=== PATIENT | female | born 1940 | race African-American/Black ===

== ENCOUNTER 2018-01-03 17:26 | Inpatient (IN) | payer MEDICARE ==
[2018-01-03] MEDS: NICOTINE 21MG PATCH. TD (21:06)
[2018-01-03] MEDS: SEVELAMER CARBONATE 800 MG TABLET. PO (21:07)
[2018-01-03] MEDS: DOXYCYCLINE HYCLATE 100 MG TABLET PO (21:07)
[2018-01-03] MEDS: CALCIUM CARB/VIT D3 500/200 TABLET. PO (21:07)
[2018-01-03] MEDS: SODIUM BICARBONATE 650 MG TABLET. PO (21:07)
[2018-01-03] MEDS: SIMVASTATIN 20 MG TABLET PO (21:07)
[2018-01-03] MEDS: HEPARIN PF for SUB-Q USE 5,000 UNIT/0.5 ML VIAL. SQ (21:13)
[2018-01-03] MEDS: IPRATRPIUM/ALBUTEROL 0.5/2.5MG 3 ML NEBU. NEB (21:19)
[2018-01-04 07:09] LABS: ADD MAN DIFF? NO
[2018-01-04 07:35] LABS: ALBUMIN 2.7 g/dL (3.4-5.0); ALBUMIN/GLOBULIN RATIO 0.7 (1.0-1.7); ALK PHOS 62 U/L (46-116); ALT (SGPT) 8 U/L (14-59); ANION GAP 4 (6-14); AST (SGOT) 8 U/L (15-37); BLOOD UREA NITROGEN 39 mg/dL (7-20); BUN/CREATININE RATIO 5 (6-20); CALCIUM 11.4 mg/dL (8.5-10.1); CARBON DIOXIDE 36 mmol/L (21-32); CHLORIDE 105 mmol/L (98-107); CREATININE 8.2 mg/dL (0.6-1.0); GFR 5.7; GLUCOSE 94 mg/dL (70-99); POTASSIUM 3.6 mmol/L (3.5-5.1); SODIUM 145 mmol/L (136-145); TOTAL BILIRUBIN 0.4 mg/dL (0.2-1.0); TOTAL PROTEIN 6.5 g/dL (6.4-8.2)
[2018-01-04] MEDS: IPRATRPIUM/ALBUTEROL 0.5/2.5MG 3 ML NEBU. NEB ×4 (07:37→20:17)
[2018-01-04 08:22] LABS: BASO # 0.1 x10^3/uL (0.0-0.2); BASO % 1 % (0-3); EOS # 0.8 x10^3/uL (0.0-0.7); EOS % 8 % (0-3); HEMATOCRIT 26.8 % (36.0-47.0); HEMOGLOBIN 8.9 g/dL (12.0-15.5); LYMPH # 2.9 x10^3/uL (1.0-4.8); LYMPH % 28 % (24-48); MEAN CORPUSCULAR HEMOGLOBIN 28 pg (25-35); MEAN CORPUSCULAR HGB CONC 33 g/dL (31-37); MEAN CORPUSCULAR VOLUME 84 fL (79-100); MONO # 1.1 x10^3/uL (0.0-1.1); MONO % 10 % (0-9); NEUT # 5.4 x10^3uL (1.8-7.7); NEUT % 53 % (31-73); PLATELET COUNT 221 x10^3/uL (140-400); RED BLOOD COUNT 3.19 x10^6/uL (3.50-5.40); RED CELL DISTRIBUTION WIDTH 17.9 % (11.5-14.5); WHITE BLOOD COUNT 10.3 x10^3/uL (4.0-11.0)
[2018-01-04] MEDS: SEVELAMER CARBONATE 800 MG TABLET. PO ×3 (08:43→16:57)
[2018-01-04] MEDS: CALCIUM CARB/VIT D3 500/200 TABLET. PO (08:43)
[2018-01-04] MEDS: SODIUM BICARBONATE 650 MG TABLET. PO (08:43)
[2018-01-04] MEDS: DOXYCYCLINE HYCLATE 100 MG TABLET PO ×2 (08:43→21:19)
[2018-01-04] MEDS: LETROZOLE 2.5 MG TABLET. PO (08:44)
[2018-01-04] MEDS: HEPARIN PF for SUB-Q USE 5,000 UNIT/0.5 ML VIAL. SQ ×2 (08:45→21:26)
[2018-01-04] MEDS: NICOTINE 21MG PATCH. TD (08:46)
[2018-01-04] MEDS ORDERED: NON FORMULARY ITEM (Tiotropium Bromide (Spiriva) 1 CAP) IH (09:00)
[2018-01-04] MEDS ORDERED: AZITHROMYCIN 250 MG TABLET. PO (09:00)
[2018-01-04] MEDS ORDERED: MAGNESIUM SULFATE 2GM 50 ML IV (11:15)
[2018-01-04] MEDS: FOLIC/VIT B COMP W-C (RENAL) TABLET. PO ×2 (14:06→21:19)
[2018-01-04] MEDS: LACTOBACILLUS RHAMNOSUS GG 1 CAPSULE. PO ×2 (14:06→21:19)
[2018-01-04] MEDS: cefTRIAXone IV Push 1 GM VIAL. IVP (14:07)
[2018-01-04] MEDS: SIMVASTATIN 20 MG TABLET PO (21:19)
[2018-01-04] MEDS: DARBEPOETIN ALFA 60 MCG/0.3 ML DISP.SYRIN. SQ (21:20)
[2018-01-05 04:01] LABS: ADD MAN DIFF? NO
[2018-01-05 04:15] LABS: BASO # 0.1 x10^3/uL (0.0-0.2); BASO % 1 % (0-3); EOS # 0.4 x10^3/uL (0.0-0.7); EOS % 4 % (0-3); HEMATOCRIT 26.4 % (36.0-47.0); HEMOGLOBIN 8.8 g/dL (12.0-15.5); LYMPH # 2.6 x10^3/uL (1.0-4.8); LYMPH % 26 % (24-48); MEAN CORPUSCULAR HEMOGLOBIN 28 pg (25-35); MEAN CORPUSCULAR HGB CONC 33 g/dL (31-37); MEAN CORPUSCULAR VOLUME 83 fL (79-100); MONO # 1.1 x10^3/uL (0.0-1.1); MONO % 11 % (0-9); NEUT # 5.9 x10^3uL (1.8-7.7); NEUT % 59 % (31-73); PLATELET COUNT 205 x10^3/uL (140-400); RED BLOOD COUNT 3.17 x10^6/uL (3.50-5.40); RED CELL DISTRIBUTION WIDTH 17.3 % (11.5-14.5); WHITE BLOOD COUNT 10.1 x10^3/uL (4.0-11.0)
[2018-01-05 04:36] LABS: ALBUMIN 2.9 g/dL (3.4-5.0); ANION GAP 4 (6-14); CALCIUM 10.8 mg/dL (8.5-10.1); CARBON DIOXIDE 33 mmol/L (21-32); CHLORIDE 104 mmol/L (98-107); CREATININE 3.8 mg/dL (0.6-1.0); GFR 13.9; GLUCOSE 102 mg/dL (70-99); MAGNESIUM 2.2 mg/dL (1.8-2.4); PHOSPHORUS 2.7 mg/dL (2.6-4.7); POTASSIUM 3.8 mmol/L (3.5-5.1); SODIUM 141 mmol/L (136-145)
[2018-01-05 04:37] LABS: BLOOD UREA NITROGEN 13 mg/dL (7-20)
[2018-01-05] MEDS: IPRATRPIUM/ALBUTEROL 0.5/2.5MG 3 ML NEBU. NEB ×4 (07:06→20:06)
[2018-01-05] MEDS: DOXYCYCLINE HYCLATE 100 MG TABLET PO ×2 (09:10→21:25)
[2018-01-05] MEDS: LACTOBACILLUS RHAMNOSUS GG 1 CAPSULE. PO ×2 (09:10→21:26)
[2018-01-05] MEDS: FOLIC/VIT B COMP W-C (RENAL) TABLET. PO ×3 (09:10→21:26)
[2018-01-05] MEDS: NICOTINE 21MG PATCH. TD (09:10)
[2018-01-05] MEDS: SEVELAMER CARBONATE 800 MG TABLET. PO ×3 (09:11→17:32)
[2018-01-05] MEDS: LETROZOLE 2.5 MG TABLET. PO (09:11)
[2018-01-05] MEDS: HEPARIN PF for SUB-Q USE 5,000 UNIT/0.5 ML VIAL. SQ ×2 (09:13→21:32)
[2018-01-05] MEDS: cefTRIAXone IV Push 1 GM VIAL. IVP (13:23)
[2018-01-05] MEDS: amLODIPine BESYLATE 5 MG TABLET PO (17:33)
[2018-01-05] MEDS: SIMVASTATIN 20 MG TABLET PO (21:25)
[2018-01-06] MEDS: IPRATRPIUM/ALBUTEROL 0.5/2.5MG 3 ML NEBU. NEB ×4 (07:34→19:26)
[2018-01-06] MEDS: amLODIPine BESYLATE 5 MG TABLET PO ×2 (07:35→17:52)
[2018-01-06] MEDS: SEVELAMER CARBONATE 800 MG TABLET. PO ×3 (08:00→17:52)
[2018-01-06] MEDS: LACTOBACILLUS RHAMNOSUS GG 1 CAPSULE. PO ×2 (09:00→20:52)
[2018-01-06] MEDS: FOLIC/VIT B COMP W-C (RENAL) TABLET. PO ×3 (09:00→20:52)
[2018-01-06] MEDS: NICOTINE 21MG PATCH. TD ×2 (09:00→15:08)
[2018-01-06] MEDS: HEPARIN PF for SUB-Q USE 5,000 UNIT/0.5 ML VIAL. SQ (09:00)
[2018-01-06] MEDS: DOXYCYCLINE HYCLATE 100 MG TABLET PO ×3 (09:00→20:52)
[2018-01-06 10:14] LABS: ALBUMIN 2.8 g/dL (3.4-5.0); ANION GAP 6 (6-14); BLOOD UREA NITROGEN 28 mg/dL (7-20); CALCIUM 10.3 mg/dL (8.5-10.1); CARBON DIOXIDE 31 mmol/L (21-32); CHLORIDE 101 mmol/L (98-107); GFR 10.1; GLUCOSE 100 mg/dL (70-99); POTASSIUM 3.4 mmol/L (3.5-5.1); SODIUM 138 mmol/L (136-145)
[2018-01-06] MEDS: traMADol 50 MG TABLET PO (15:08)
[2018-01-06] MEDS: LETROZOLE 2.5 MG TABLET. PO (15:09)
[2018-01-06] MEDS: cefTRIAXone IV Push 1 GM VIAL. IVP (15:13)
[2018-01-06] MEDS: HALOPERIDOL LACTATE 5 MG/ML VIAL. IVP (20:48)
[2018-01-06] MEDS: SIMVASTATIN 20 MG TABLET PO (20:52)
[2018-01-07 06:25] LABS: ADD MAN DIFF? NO
[2018-01-07 06:42] LABS: BASO # 0.1 x10^3/uL (0.0-0.2); BASO % 1 % (0-3); EOS # 0.8 x10^3/uL (0.0-0.7); EOS % 8 % (0-3); HEMATOCRIT 28.2 % (36.0-47.0); HEMOGLOBIN 9.6 g/dL (12.0-15.5); LYMPH # 2.5 x10^3/uL (1.0-4.8); LYMPH % 25 % (24-48); MEAN CORPUSCULAR HEMOGLOBIN 28 pg (25-35); MEAN CORPUSCULAR HGB CONC 34 g/dL (31-37); MEAN CORPUSCULAR VOLUME 83 fL (79-100); MONO # 0.9 x10^3/uL (0.0-1.1); MONO % 9 % (0-9); NEUT # 5.5 x10^3uL (1.8-7.7); NEUT % 57 % (31-73); PLATELET COUNT 199 x10^3/uL (140-400); RED BLOOD COUNT 3.39 x10^6/uL (3.50-5.40); RED CELL DISTRIBUTION WIDTH 17.9 % (11.5-14.5); WHITE BLOOD COUNT 9.8 x10^3/uL (4.0-11.0)
[2018-01-07 07:09] LABS: ALBUMIN 2.8 g/dL (3.4-5.0); ANION GAP 6 (6-14); BLOOD UREA NITROGEN 24 mg/dL (7-20); CALCIUM 10.8 mg/dL (8.5-10.1); CARBON DIOXIDE 33 mmol/L (21-32); CHLORIDE 100 mmol/L (98-107); CREATININE 4.1 mg/dL (0.6-1.0); GFR 12.7; GLUCOSE 89 mg/dL (70-99); SODIUM 139 mmol/L (136-145)
[2018-01-07] MEDS ORDERED: LIDOCAINE 1% PF 2 ML VIAL. ID (07:30)
[2018-01-07] MEDS ORDERED: MIDAZOLAM HCL/PF 2 MG/2 ML VIAL. IV (07:30)
[2018-01-07] MEDS ORDERED: fentaNYL PF VIAL 100 MCG/2 ML VIAL IV ×2 (07:30)
[2018-01-07] MEDS: IV NORMAL SALINE 1000ML BAG 1,000 ML IV ×2 (07:47→15:23)
[2018-01-07] MEDS: IPRATRPIUM/ALBUTEROL 0.5/2.5MG 3 ML NEBU. NEB ×4 (07:59→19:37)
[2018-01-07] MEDS: SEVELAMER CARBONATE 800 MG TABLET. PO ×3 (08:00→17:31)
[2018-01-07] MEDS ORDERED: PROPOFOL 20 ML IV (08:11)
[2018-01-07] MEDS: FOLIC/VIT B COMP W-C (RENAL) TABLET. PO ×3 (09:00→20:53)
[2018-01-07] MEDS: NICOTINE 21MG PATCH. TD (13:31)
[2018-01-07] MEDS: DOXYCYCLINE HYCLATE 100 MG TABLET PO ×2 (13:31→20:53)
[2018-01-07] MEDS: LACTOBACILLUS RHAMNOSUS GG 1 CAPSULE. PO (13:32)
[2018-01-07] MEDS: amLODIPine BESYLATE 5 MG TABLET PO ×2 (13:32→17:32)
[2018-01-07] MEDS: LETROZOLE 2.5 MG TABLET. PO (13:39)
[2018-01-07] MEDS: cefTRIAXone IV Push 1 GM VIAL. IVP (13:40)
[2018-01-07] MEDS: traMADol 50 MG TABLET PO (20:55)
[2018-01-07] MEDS: SIMVASTATIN 20 MG TABLET PO (21:00)
[2018-01-08 04:49] LABS: MAGNESIUM 2.1 mg/dL (1.8-2.4)
[2018-01-08 04:56] LABS: ALBUMIN 2.6 g/dL (3.4-5.0); ALBUMIN/GLOBULIN RATIO 0.8 (1.0-1.7); ALK PHOS 61 U/L (46-116); ALT (SGPT) 8 U/L (14-59); ANION GAP 7 (6-14); AST (SGOT) 14 U/L (15-37); BLOOD UREA NITROGEN 37 mg/dL (7-20); BUN/CREATININE RATIO 6 (6-20); CALCIUM 10.4 mg/dL (8.5-10.1); CARBON DIOXIDE 31 mmol/L (21-32); CHLORIDE 100 mmol/L (98-107); CREATININE 6.1 mg/dL (0.6-1.0); GLUCOSE 89 mg/dL (70-99); PHOSPHORUS 4.1 mg/dL (2.6-4.7); POTASSIUM 4.4 mmol/L (3.5-5.1); SODIUM 138 mmol/L (136-145); TOTAL BILIRUBIN 0.5 mg/dL (0.2-1.0); TOTAL PROTEIN 5.8 g/dL (6.4-8.2)
[2018-01-08] MEDS: amLODIPine BESYLATE 5 MG TABLET PO ×2 (06:19→18:00)
[2018-01-08] MEDS: FOLIC/VIT B COMP W-C (RENAL) TABLET. PO ×2 (08:22→14:00)
[2018-01-08] MEDS: IPRATRPIUM/ALBUTEROL 0.5/2.5MG 3 ML NEBU. NEB ×2 (08:23→11:51)
[2018-01-08] MEDS: SEVELAMER CARBONATE 800 MG TABLET. PO ×3 (08:24→17:00)
[2018-01-08] MEDS: LETROZOLE 2.5 MG TABLET. PO (09:00)
[2018-01-08] MEDS: DOXYCYCLINE HYCLATE 100 MG TABLET PO (09:00)
[2018-01-08] MEDS: NICOTINE 21MG PATCH. TD (09:00)
[2018-01-08] MEDS ORDERED: IV NORMAL SALINE 1000ML BAG 1,000 ML IV ×2 (14:19)
[2018-01-08] MEDS ORDERED: DIALYSIS PATIENT. MC ×2 (14:30)
== END 2018-01-08 18:05 | DRG 166 ==
LOC: 2 NORTH 17:26
PROC: 0BDF8ZX Extraction of Right Lower Lung Lobe, Via Natural or Artificial Opening Endoscopic, Diagnostic (ICD-10-PCS; principal; 2018-01-07 08:25)
PROC: 0BBF8ZX Excision of Right Lower Lung Lobe, Via Natural or Artificial Opening Endoscopic, Diagnostic (ICD-10-PCS; 2018-01-07 08:25)
PROC: 5A1D70Z Performance of Urinary Filtration, Intermittent, Less than 6 Hours Per Day (ICD-10-PCS; 2018-01-07 08:25)
DX: C34.90 Malignant neoplasm of unspecified part of unspecified bronchus or lung (principal); J15.6 Pneumonia due to other Gram-negative bacteria; I12.0 Hypertensive chronic kidney disease with stage 5 chronic kidney disease or end stage renal disease; N18.6 End stage renal disease; D63.1 Anemia in chronic kidney disease; F03.90 Unspecified dementia, unspecified severity, without behavioral disturbance, psychotic disturbance, mood disturbance, and anxiety; J44.0 Chronic obstructive pulmonary disease with (acute) lower respiratory infection; J44.1 Chronic obstructive pulmonary disease with (acute) exacerbation; E83.52 Hypercalcemia; F17.210 Nicotine dependence, cigarettes, uncomplicated; M54.9 Dorsalgia, unspecified; I25.10 Atherosclerotic heart disease of native coronary artery without angina pectoris; Z85.118 Personal history of other malignant neoplasm of bronchus and lung; Z90.12 Acquired absence of left breast and nipple; Z99.2 Dependence on renal dialysis
CPT/HCPCS: 31622; 36415; 71045; 71046; 71250; 80053; 80069; 83735; 84100; 85025; 87070; 87205; 88112; 88305; 94640; 94760; 97110-GP; 97162-GP; 97166-GO; 97530-GP; 97535-GO; 99285; 99285-25; J0696; J0881; J1630; J2704; J7030; J7620